=== PATIENT | female | born 1980 | race Caucasian/White ===

== ENCOUNTER 2019-11-20 05:27 | Inpatient (IN) ==
[2019-11-20] MEDS ORDERED: FAMOTIDINE 20 MG/2 ML VIAL IV ONE (05:34)
[2019-11-20] MEDS ORDERED: ceFAZolin 2,000 MG in PREMIX 1 EACH IV ONE (05:34)
[2019-11-20] MEDS ORDERED: OXYTOCIN/LR 20 UNIT/1,000 ML BAG IV ONE ×2 (05:34→08:37)
[2019-11-20] MEDS ORDERED: CITRIC ACID/SODIUM CITRATE 30 ML UDCUP PO ONE (05:34)
[2019-11-20 05:56] LABS: Basophils % 0.3 % (0.0-0.8); Eosinophils # 0.1 10*3/uL (0.0-0.87); Eosinophils % 1.1 % (0.00-10.9); Hematocrit 33.2 VOL% (35.7-47.0); Hemoglobin 10.7 GM/DL (12.0-16.0); Immature Granulocytes % 0.7 %; Immature Granulocytes Absolute 0.04 #; Lymphocytes # 1.5 10*3/uL (1.4-4.0); Lymphocytes % 24.9 % (21.3-54.2); Mean Corpuscular HGB Conc 32.2 GM/DL (32-36); Mean Corpuscular Volume 87.6 FL (87-102); Mean Platelet Volume 13.4 FL (9.6-12.0); Monocytes % 7.2 % (1.7-12.7); NRBC # 0.02 10*3/uL; Neutrophils % 65.8 % (38.7-73.9); Platelet Count 142 T/CUMM (130-400); Red Blood Count 3.79 MC/CUMM (3.8-5.5); Red Cell Distribution Width 14.4 % (9.3-17.3); White Blood Count 6.1 T/CUMM (4-12)
[2019-11-20] MEDS: LACTATED RINGERS 1,000 ML IV SCH ×2 (06:00→07:17)
[2019-11-20 06:21] LABS: Albumin 2.7 G/DL (3.4-5.0); Bilirubin,Total 0.6 MG/DL (0.2-1.0); Calcium 9.6 MG/DL (8.5-10.1); Osmolality,Calculated 272.7 MOS/KG (273-304); Total Protein 7.5 G/DL (6.4-8.3)
[2019-11-20] MEDS ORDERED: DEXAMETHASONE 4 MG/1 ML VIAL ONE (06:25)
[2019-11-20] MEDS ORDERED: BUPIVACAINE MPF 0.25% 30 ML VIAL ONE (06:25)
[2019-11-20] MEDS ORDERED: ONDANSETRON 4 MG/2 ML VIAL ONE (06:28)
[2019-11-20] MEDS ORDERED: BUPIVACAINE SPINAL 0.75% 2 ML AMP SPINAL ONE (06:28)
[2019-11-20 08:35] LABS: Apearance,Urine CLEAR (Clear); Bilirubin,Urine Negative (Negative); Blood, Urine Negative (Negative); Glucose,Urine (UA) Negative (Negative); Ketones,Urine Negative (Negative); Nitrite,Urine Negative (Negative); Protein,Urine Negative; RBC,Urine <1 /HPF (0-4); Urine Color Straw (Yellow); Urine Specific Gravity 1.005 (1.001-1.035); Urine Urobilinogen < 2.0 EU/DL (0.2-1.0); WBC,Urine <1 /HPF (0-6)
[2019-11-20] MEDS ORDERED: ONDANSETRON 4 MG/2 ML VIAL IV PRN (08:37)
[2019-11-20] MEDS ORDERED: LANOLIN 50% CREAM 0.3 OZ TUBE TOP PRN (08:37)
[2019-11-20] MEDS ORDERED: MEASLES/MUMPS/RUBELLA VACCINE 0.5 ML VIAL SUBCUT ONE (08:37)
[2019-11-20] MEDS ORDERED: RHO(D) IMMUNE GLOBULIN 300 MCG SYRINGE IM ONE (08:37)
[2019-11-20] MEDS ORDERED: ACETAMINOPHEN 325 MG TABLET PO PRN (08:37)
[2019-11-20] MEDS ORDERED: BENZOCAINE 20%/MENTHOL 0.5% SPRAY 56 GM CAN TOP PRN (08:37)
[2019-11-20] MEDS ORDERED: oxyCODONE/ACETAMINOPHEN 5-325 MG TABLET PO PRN (08:37)
[2019-11-20] MEDS ORDERED: WITCH HAZEL PADS 100/JAR TOP PRN (08:37)
[2019-11-20] MEDS ORDERED: HYDROCORTISONE 2.5% RECTAL CREAM 30 GM TUBE TOP PRN (08:37)
[2019-11-20] MEDS ORDERED: DIPH/TET/ACEL PERT BOOSTER VACCINE 0.5 ML VIAL IM ONE (08:37)
[2019-11-20] MEDS ORDERED: BISACODYL 10 MG SUPP RECTAL PRN (08:37)
[2019-11-20] MEDS: IBUPROFEN 800 MG TABLET PO PRN ×2 (10:01→21:43)
[2019-11-20] MEDS ORDERED: MORPHINE 10 MG/10 ML VIAL ONE (10:07)
[2019-11-20] MEDS: oxyCODONE/ACETAMINOPHEN 5-325 MG TABLET PO PRN ×2 (12:08→21:43)
[2019-11-20] MEDS: ceFAZolin 1,000 MG in SYRINGE 1 EACH IV SCH ×2 (16:10→23:55)
[2019-11-20] MEDS: DOCUSATE SODIUM 100 MG CAPSULE PO SCH (21:42)
[2019-11-21 06:08] LABS: Basophils % 0.3 % (0.0-0.8); Eosinophils % 0.3 % (0.00-10.9); Hematocrit 28.2 VOL% (35.7-47.0); Hemoglobin 9.2 GM/DL (12.0-16.0); Immature Granulocytes % 0.7 %; Immature Granulocytes Absolute 0.08 #; Lymphocytes # 2.2 10*3/uL (1.4-4.0); Lymphocytes % 18.6 % (21.3-54.2); Mean Corpuscular HGB Conc 32.6 GM/DL (32-36); Mean Corpuscular Volume 86.8 FL (87-102); Mean Platelet Volume 13.8 FL (9.6-12.0); Monocytes % 8.6 % (1.7-12.7); Neutrophils % 71.5 % (38.7-73.9); Platelet Count 136 T/CUMM (130-400); Red Blood Count 3.25 MC/CUMM (3.8-5.5); Red Cell Distribution Width 14.5 % (9.3-17.3); White Blood Count 11.7 T/CUMM (4-12)
[2019-11-21] MEDS: DOCUSATE SODIUM 100 MG CAPSULE PO SCH ×2 (08:53→20:50)
[2019-11-21] MEDS: IBUPROFEN 800 MG TABLET PO PRN ×2 (10:37→20:23)
[2019-11-21] MEDS ORDERED: RHO(D) IMMUNE GLOBULIN 300 MCG SYRINGE IM ONE (11:34)
[2019-11-21] MEDS: MAGNESIUM HYDROXIDE SUSP 30 ML UDCUP PO PRN (20:50)
[2019-11-21] MEDS: SIMETHICONE CHEW 80 MG TABLET PO PRN (20:50)
[2019-11-21] MEDS: oxyCODONE/ACETAMINOPHEN 5-325 MG TABLET PO PRN (22:51)
[2019-11-22] MEDS ORDERED: oxyCODONE/ACETAMINOPHEN 5-325 MG TABLET PO ONE (01:13)
[2019-11-22 08:19] VITALS: BP 121/79
[2019-11-22] MEDS: MAGNESIUM HYDROXIDE SUSP 30 ML UDCUP PO PRN (08:40)
[2019-11-22] MEDS: SIMETHICONE CHEW 80 MG TABLET PO PRN (08:41)
[2019-11-22] MEDS: oxyCODONE/ACETAMINOPHEN 5-325 MG TABLET PO PRN (08:43)
[2019-11-22] MEDS: DOCUSATE SODIUM 100 MG CAPSULE PO SCH (08:44)
== END 2019-11-22 11:05 | disposition home or self-care (01) | DRG 785 ==
LOC: N.LD 05:27 → N.OB 11:35
PROVIDERS: ADMIT Specialist; ATTEND Specialist